=== PATIENT | female | born 1945 | race Caucasian/White ===

== ENCOUNTER 2016-10-04 17:00 | Emergency (ER) | payer MEDICARE ==
[2016-10-04 17:27] VITALS: BP 155/66
--- NOTE | 2016-10-04 18:33 | UC ---
Skin Complaint HPI - HPI Summary HPI Summary: pt with c/o red burning/itchy/irritated rash under bl breast that started 5 days ago. rt side has mostly resolved but left side has worsened slightly. - History of Current Complaint Chief Complaint: UCRash Time Seen by Provider: 10/04/16 18:11 Stated Complaint: STOMACH RASH Hx Obtained From: Patient Onset/Duration: Gradual Onset, Lasting Days - 5, Still Present, Worse Since - LAST 2 DAYS Timing: Constant Onset Severity: Mild Current Severity: Mild Pain Intensity: 2 Character: Pruritus, Redness, Painful Aggravating: Nothing Alleviating: Nothing Associated Signs & Symptoms: Positive: Rash. Negative: Nausea, Vomiting, Difficulty Breathing, Fever, Chills, Cough, Wheezing, Chest Pain, Hoarseness, Throat Tightening, Abdominal Pain, Lightheadedness, Drainage - Allergy/Home Medications Allergies/Adverse Reactions: Allergies Allergy/AdvReac Type Severity Reaction Status Date / Time Ciprofloxacin [From Cipro] Allergy Mild stomach Verified 10/04/16 17:27 ache Erythromycin Allergy Mild stomachache Verified 10/04/16 17:27 Prednisone Allergy Dizzy, Verified 10/04/16 17:27 heart racing Sulfa Antibiotics AdvReac Vomiting Verified 10/04/16 17:27 Sulfamethoxazole AdvReac Vomiting Verified 10/04/16 17:27 w/Trimethoprim [From Bactrim] Home Medications: Home Medications Famciclovir TAB(NF) [Famvir TAB(NF)] 250 mg PO ONCE 10/04/16 [History Confirmed 10/04/16] Review of Systems Constitutional: Negative Skin: Rash Eyes: Negative ENT: Negative Respiratory: Negative Cardiovascular: Negative Gastrointestinal: Negative Genitourinary: Negative Motor: Negative Neurovascular: Negative Musculoskeletal: Negative Neurological: Negative Psychological: Negative All Other Systems Reviewed And Are Negative: Yes PMH/Surg Hx/FS Hx/Imm Hx Endocrine History Of: Denies: Diabetes Cardiovascular History Of: Reports: Cardiac Disorders - palpitations, PVCS, FLUID Denies: Hypertension Respiratory History Of: Denies: Asthma - Surgical History Surgical History: Yes Surgery Procedure, Year, and Place: CATARACT B/L. D&C. RIGHT THUMB TRIGGER RELEASE--06/2015 - Family History Known Family History: Positive: Cardiac Disease, Hypertension, Diabetes - Social History Alcohol Use: None Substance Use Type: None, Prescribed Smoking Status (MU): Former Smoker - Immunization History Most Recent Influenza Vaccination: [id number] Physical Exam Triage Information Reviewed: Yes Appearance: Well-Appearing, No Pain Distress, Well-Nourished Vital Signs: Initial Vital Signs Temp 98.5 F 10/04/16 17:20 Pulse 68 10/04/16 17:20 Resp 16 10/04/16 17:20 BP 155/66 10/04/16 17:20 Pulse Ox 100 10/04/16 17:20 Vital Signs Reviewed: Yes Eyes: Positive: Conjunctiva Clear. Negative: Discharge ENT Exam: Normal ENT: Positive: Hearing grossly normal. Negative: Muffled/hoarse voice Neck exam: Normal Neck: Positive: Supple Respiratory: Positive: Lungs clear, Normal breath sounds, No respiratory distress, No accessory muscle use Cardiovascular: Positive: RRR, No Murmur Musculoskeletal Exam: Normal Neurological Exam: Normal Neurological: Positive: Alert, Muscle Tone Normal Psychological: Positive: Age Appropriate Behavior Skin: Positive: rashes Course/Dx - Differential Diagnoses - Skin Complaint Differential Diagnoses: Cellulitis, Contact Dermatitis, Tinea, Urticaria - Diagnoses Provider Diagnoses: fungal skin infection Discharge - Discharge Plan Condition: Stable Disposition: HOME Prescriptions: Nystatin/Triamcinolone CR(NF) [Mycolog CREAM(NF)] 1 applic TOPICAL BID #7 tube Patient Education Materials: Skin Yeast Infection (ED), Antifungals (On the skin) Referrals: Devin Rich MD [Primary Care Provider] - 1 Week (FOLLOW UP IN 2 DAYS IF WORSENING OR IF NEW SYMPTOMS(SUCH FEVER, CHILLS, CONFUSIONS OR UNSTABLE ON FEET) DEVELOP. OTHERWISE FOLLOW UP IN 1 WEEK.)
== END 2016-10-04 18:53 | disposition home or self-care (01) ==
LOC: UCCORT 17:00
DX: B36.9 Superficial mycosis, unspecified (principal); Z88.1 Allergy status to other antibiotic agents; Z88.2 Allergy status to sulfonamides; Z88.8 Allergy status to other drugs, medicaments and biological substances; Z98.42 Cataract extraction status, left eye; Z98.41 Cataract extraction status, right eye; Z87.891 Personal history of nicotine dependence
CPT/HCPCS: 99212; G0463

== ENCOUNTER 2017-07-01 14:31 | Emergency (ER) | payer MEDICARE ==
--- NOTE | 2017-07-01 15:38 | UC ---
Skin Complaint HPI - HPI Summary HPI Summary: 71 year old female presents with complains rash on her left wrist. - History of Current Complaint Time Seen by Provider: 07/01/17 15:37 Stated Complaint: LEFT ARM SKIN COMPLAINT Hx Obtained From: Patient Onset/Duration: Lasting Days Skin Exposure Onset/Duration: Days Ago Onset Severity: Moderate Current Severity: Moderate Location: Hand (Left) Aggravating Factor(s): Nothing Alleviating Factor(s): Nothing Associated Signs & Symptoms: Positive: Negative - Allergy/Home Medications Allergies/Adverse Reactions: Allergies Allergy/AdvReac Type Severity Reaction Status Date / Time Ciprofloxacin [From Cipro] Allergy Mild stomach Verified 07/01/17 15:42 ache Erythromycin Allergy Mild stomachache Verified 07/01/17 15:42 Prednisone Allergy Dizzy, Verified 07/01/17 15:42 heart racing Sulfa Antibiotics AdvReac Vomiting Verified 07/01/17 15:42 Sulfamethoxazole AdvReac Vomiting Verified 07/01/17 15:42 w/Trimethoprim [From Bactrim] Review of Systems Constitutional: Negative Skin: Rash Eyes: Negative ENT: Negative Respiratory: Negative Cardiovascular: Negative Gastrointestinal: Negative Genitourinary: Negative Motor: Negative Neurovascular: Negative Musculoskeletal: Negative Neurological: Negative Psychological: Negative All Other Systems Reviewed And Are Negative: Yes PMH/Surg Hx/FS Hx/Imm Hx Previously Healthy: Yes - Surgical History Surgical History: Yes Surgery Procedure, Year, and Place: CATARACT B/L. D&C. RIGHT THUMB TRIGGER RELEASE--06/2015 - Family History Known Family History: Positive: Cardiac Disease, Hypertension, Diabetes - Social History Alcohol Use: None Substance Use Type: None, Prescribed Smoking Status (MU): Former Smoker - Immunization History Most Recent Influenza Vaccination: [id number] Physical Exam Triage Information Reviewed: Yes Vital Signs Reviewed: Yes Eye Exam: Normal ENT Exam: Normal Dental Exam: Normal Neck exam: Normal Neck: Positive: 1 Respiratory Exam: Normal Cardiovascular Exam: Normal Abdominal Exam: Normal Musculoskeletal Exam: Normal Neurological Exam: Normal Psychological Exam: Normal Skin: Positive: rashes - left wrist Course/Dx - Diagnoses Provider Diagnoses: left wrist blister/rash Discharge - Discharge Plan Condition: Stable Disposition: HOME Prescriptions: Cephalexin CAP* [Keflex CAP*] 500 mg PO TID #30 cap Neomycin/Polym/Bacit TOP OINT* [Neosporin TOP OINT TUBE*] 1 applic TOPICAL BID # 1 tube Patient Education Materials: Blister (ED) Referrals: Devin Rich MD [Medical Doctor] -
[2017-07-01 15:42] VITALS: BP 144/81
== END 2017-07-01 15:57 | disposition home or self-care (01) ==
LOC: UCCORT 14:31
DX: S60.822A Blister (nonthermal) of left wrist, initial encounter (principal); R21 Rash and other nonspecific skin eruption; X58.XXXA Exposure to other specified factors, initial encounter; Y92.9 Unspecified place or not applicable; Z88.3 Allergy status to other anti-infective agents; Z88.2 Allergy status to sulfonamides; Z87.891 Personal history of nicotine dependence
CPT/HCPCS: 99212; G0463

== ENCOUNTER 2017-07-04 18:01 | Emergency (ER) | payer MEDICARE ==
--- OUTSIDE RECORDS SUMMARY | 2017-07-04 18:19 | XMS REPORT ---
:1945 External Reference #:[id number] Author Organization [employer] Address [address] [place] [address] Phone [phone] Care Team Providers Name Role Phone Devin Rich MD Care Team Information Offline Editor Unavailable Devin Rich MD Primary Care Physician Unavailable Payers Type Date Identification Numbers Payment Provider Subscriber Medicare Primary Policy Number: [id number] Medicare Natacha Galindo PayID: [id number] [address] [place] [address] [facility] Policy Number: [facility] Natacha Galindo [id number] PayID: [id number] [address] [place] [address] Problems Date Description Provider Status Onset: 05/05/2012 Hypertrophy of nasal turbinates Amber Castellon PA Active Onset: 05/05/2012 Stomatitis Amber Castellon PA Active Family History Date Family Member(s) Problem(s) Comments General Cancer, Head And Neck General Diabetes Social History Type Date Description Comments Marital Status Occupation [employer] Cigarette Use Never Smoked Cigarettes ETOH Use Never used alcohol Recreational Drug Use Never Used Drugs Smoking Patient has never smoked Allergies, Adverse Reactions, Alerts Date Description Reaction Status Severity Comments 05/05/2012 Erythromycin vomitting active 05/05/2012 Prednisone active 04/06/2015 Zithromax GI upset active Medications Medication Date Status Form Strength Qnty SIG Indications Ordering Provider Xanax 12/15/ Active Tablets 0.25mg 5tabs use one , 2013 tab every Rogelio, at M.D. bedtime Aleve 00/ Active Tablets 220mg 1 by Unknown 0000 mouth daily as needed Benadryl 00/ Active Capsules Unknown Allergy 0000 Afrin 12 Hour 0000/ Active Solution 0.05% Unknown 0000 Fluticasone 00/ Active Suspension 50mcg/Act 2 sprays Unknown Propionate 0000 both nostrils every day Dexamethasone 05/03/ Hx Tablets 2mg 5tabs 1 by Jere 2015 - mouth Rogelio, 08/04/ every day M.D. 2016 Nystatin 04/15/ Hx Suspension 334239Dreh 200ml 1 Jere, 2015 - /ML teaspoon Rogelio, 05/02/ by mouth M.D. 2015 four times a day x 7 days hold it in the mouth, swish and swallow Omeprazole 04/04/ Hx Capsules DR 40mg 30cap 1 by Jere, 2015 - s mouth Rogelio, 04/14/ every day M.D. 2015 Xanax 12/15/ Hx Tablets 1mg 1 tab Jere, 2013 - every Rogelio, 12/15/ night at M.D. 2013 bedtime Nasonex 05/12/ Hx Suspension 50mcg/Act 17GMb 2 sprays Jere, 2011 - ottl each Rogelio, 12/23/ nostril M.D. 2012 daily Azithromycin 05/06/ Hx Tablets 250mg 6tabs 2 po qd Jere, 2011 - 1, 1 po [facility], 05/12/ qd 2-5 M.D. 2011 Fluconazole 05/06/ Hx Tablets 150mg 2tabs 1 po qd. Jere, 2011 - repeat in [facility], 05/12/ 3 days if M.D. 2011 symptoms persist. Xanax / Hx Tablets 0.25mg 30tab use one Unknown 0000 - s tab q 12 12/15/ prn for 2013 anxiety Nexium / Hx Capsules DR 40mg 60cap 1 po qd Unknown 0000 - s prn 2013 Famvir / Hx Tablets 125mg @ hs Unknown 0000 - 2012 Fluticasone / Hx Suspension 50mcg/Act 1unit 2 sprays Unknown Propionate 0000 - s each 12/15/ nostril 2014 qd Valium /00/ Hx Tablets 2mg 15tab one tab Unknown 0000 - s ar night 06/14/ daily for 2013 15 days Nexium 00/00/ Hx Capsules 1 by Unknown 0000 - mouth 04/04/ twice 2016 daily Vital Signs Date Vital Result Comment 06/11/2017 Weight 146.50 lb Height 63.5 inches 5'3.50" BMI (Body Mass Index) 25.5 kg/m2 BP Systolic 146 mmHg BP Diastolic 80 mmHg Heart Rate 76 /min O2 % BldC Oximetry 97 % Body Temperature 97.6 F Pain Level 0 08/05/2016 Weight 148.00 lb Height 63.5 inches 5'3.50" BMI (Body Mass Index) 25.8 kg/m2 BP Systolic 128 mmHg BP Diastolic 82 mmHg Heart Rate 78 /min O2 % BldC Oximetry 98 % Body Temperature 97.6 F 05/03/2016 Weight 144.00 lb Height 63.5 inches 5'3.50" BMI (Body Mass Index) 25.1 kg/m2 BP Systolic 118 mmHg BP Diastolic 68 mmHg Heart Rate 73 /min O2 % BldC Oximetry 98 % Body Temperature 98.0 F Pain Level 0 04/15/2016 Weight 144.50 lb Height 63.5 inches 5'3.50" BMI (Body Mass Index) 25.2 kg/m2 BP Systolic 126 mmHg BP Diastolic 68 mmHg Heart Rate 77 /min O2 % BldC Oximetry 98 % Body Temperature 100.0 F 04/04/2016 Weight 148.00 lb Height 63.5 inches 5'3.50" BMI (Body Mass Index) 25.8 kg/m2 Heart Rate 86 /min O2 % BldC Oximetry 100 % Body Temperature 98.2 F 03/28/2016 Weight 149.00 lb Height 63.5 inches 5'3.50" BMI (Body Mass Index) 26.0 kg/m2 BP Systolic 134 mmHg BP Diastolic 66 mmHg Heart Rate 69 /min O2 % BldC Oximetry 99 % Body Temperature 96.8 F 03/13/2016 Weight 149.50 lb Height 63.5 inches 5'3.50" BMI (Body Mass Index) 26.1 kg/m2 Heart Rate 78 /min O2 % BldC Oximetry 98 % Body Temperature 98.8 F 04/18/2015 Weight 149.50 lb Height 63.5 inches 5'3.50" BMI (Body Mass Index) 26.1 kg/m2 BP Systolic 134 mmHg BP Diastolic 80 mmHg Heart Rate 82 /min O2 % BldC Oximetry 97 % Body Temperature 99.4 F Pain Level 5 04/06/2015 Weight 150.00 lb Height 63.5 inches 5'3.50" BMI (Body Mass Index) 26.2 kg/m2 BP Systolic 126 mmHg BP Diastolic 76 mmHg Heart Rate 71 /min O2 % BldC Oximetry 98 % Body Temperature 97.5 F 11/18/2014 Weight 147.12 lb Height 63.5 inches 5'3.50" BMI (Body Mass Index) 25.7 kg/m2 BP Systolic 136 mmHg BP Diastolic 80 mmHg Heart Rate 73 /min O2 % BldC Oximetry 97 % Body Temperature 98.0 F Pain Level 0 06/15/2014 Weight 147.00 lb Height 63.5 inches 5'3.50" BMI (Body Mass Index) 25.6 kg/m2 BP Systolic 122 mmHg BP Diastolic 80 mmHg Heart Rate 68 /min O2 % BldC Oximetry 98 % Body Temperature 98.2 F Pain Level 8 12/15/2013 Weight 146.38 lb Height 63.5 inches 5'3.50" BMI (Body Mass Index) 25.5 kg/m2 BP Systolic 130 mmHg BP Diastolic 80 mmHg Heart Rate 72 /min O2 % BldC Oximetry 97 % Body Temperature 98.9 F 12/23/2012 Weight 149.00 lb Height 63.5 inches 5'3.50" BMI (Body Mass Index) 26.0 kg/m2 BP Systolic 118 mmHg BP Diastolic 76 mmHg Heart Rate 71 /min O2 % BldC Oximetry 99 % Body Temperature 97.7 F 05/12/2012 BP Systolic 140 mmHg BP Diastolic 80 mmHg Heart Rate 70 /min O2 % BldC Oximetry 98 % Body Temperature 98.8 F 05/05/2012 Weight 145.00 lb Height 63.5 inches 5'3.50" BMI (Body Mass Index) 25.3 kg/m2 BP Systolic 126 mmHg BP Diastolic 82 mmHg Heart Rate 74 /min O2 % BldC Oximetry 98 % Body Temperature 98.6 F Results Test Date Test Result H/L Range Note Laboratory test finding 08/09/2016 Free T3 2.08 pg/mL Low 2.18-3.98 1 TSH+Free T4 08/05/2016 Thyroid Stim Hormone 1.79 uIU/mL 0.30-4.20 1 Free T4 0.87 ng/dL 0.76-1.46 1 1 R22.1 Procedures Date CPT Code Description Status 08/05/2016 54349 Ultrasound Head/Neck Completed 04/15/2016 33468 Fiberoptic Laryngoscopy,Diag. Completed 04/04/2016 17188 Nasal Endoscopy, Diag. Completed 03/28/2016 13409 Fiberoptic Laryngoscopy,Diag. Completed 03/13/2016 74327 Tympanometry Completed 03/13/2016 13007 Tympanometry Completed 04/06/2015 88556 Fiberoptic Laryngoscopy,Diag. Completed 11/18/2014 39852 Tympanometry Completed 12/15/2013 52841 Audiometry, Comprehensive Completed 12/15/2013 14944 Audiometry, Comprehensive Completed 05/05/2012 30654 Nasal Endoscopy, Diag. Completed Encounters Type Date Location Provider CPT E/M Dx Office Visit 08/05/2016 9:15a Main Office Rogelio Oquendo M.D. 91672 E04.1 K21.9 Office Visit 05/03/2016 11:00a Main Office Rogelio Oquendo M.D. 10778 T28.0xxA K21.9 Office Visit 04/15/2016 1:30p Main Office Rogelio Oquendo M.D. 84564 T28.0xxA K21.9 B37.9 Office Visit 04/04/2016 10:00a Main Office Rogelio Oquendo M.D. 95137 T28.0xxA J34.2 J31.0 Office Visit 03/28/2016 9:00a Main Office Rogelio Oquendo M.D. 14289 R07.0 K21.9 M26.60 H92.02 Office Visit 03/13/2016 8:45a Main Office Rogelio Oquendo M.D. 08151 K21.9 H69.82 M26.60 Office Visit 04/18/2015 3:15p Main Office Rogelio Oquendo M.D. 00895 K21.9 R13.10 H92.01 Office Visit 04/06/2015 3:15p Main Office Rogelio Oquendo M.D. 06653 H69.83 K21.9 R07.0 Office Visit 11/18/2014 8:15a Main Office Rogelio Oquendo M.D. 59139 381.81 780.4 385.00 Office Visit 06/15/2014 11:00a Main Office Rogelio Oquendo M.D. 75300 524.60 723.1 470 Office Visit 12/15/2013 1:30p Main Office Rogelio Oquendo M.D. 47063 389.9 780.4 470 386.10 Office Visit 12/23/2012 8:45a [place] [address] 381.81 388.70 465.8 Office Visit 05/12/2012 4:15p Main Office Rogelio Oquendo M.D. 53649 478.0 528.00 Office Visit 05/05/2012 8:30a [place] [address] 478.0 528.00 Office Visit 12/15/2006 8:30a Main Office Rogelio Oquendo M.D. 54270 780.4 Plan of Care No Information Available
[2017-07-04 18:23] VITALS: BP 154/72
--- NOTE | 2017-07-04 18:25 | UC ---
Skin Complaint HPI - HPI Summary HPI Summary: 71 year old female presents with complains of left wrist rash. She was initially treated with antibiotics but her rash is unchanged. - History of Current Complaint Chief Complaint: UCSkin Time Seen by Provider: 07/04/17 18:02 Stated Complaint: LFT WRIST SKIN COMPLAINT Hx Obtained From: Patient Onset/Duration: Sudden Onset Skin Exposure Onset/Duration: Days Ago Onset Severity: Moderate Current Severity: Moderate Location: Hand (Left) - Allergy/Home Medications Allergies/Adverse Reactions: Allergies Allergy/AdvReac Type Severity Reaction Status Date / Time Ciprofloxacin [From Cipro] Allergy Mild stomach Verified 07/01/17 15:42 ache Erythromycin Allergy Mild stomachache Verified 07/01/17 15:42 Prednisone Allergy Dizzy, Verified 07/01/17 15:42 heart racing Cephalexin AdvReac GI Upset Verified 07/04/17 18:24 Sulfa Antibiotics AdvReac Vomiting Verified 07/01/17 15:42 Sulfamethoxazole AdvReac Vomiting Verified 07/01/17 15:42 w/Trimethoprim [From Bactrim] Home Medications: Home Medications Anti-Fungal Cream 1 applic TOPICAL ONCE 07/04/17 [History Confirmed 07/04/17] Review of Systems Constitutional: Negative Skin: Rash - left wrist Eyes: Negative ENT: Negative Respiratory: Negative Cardiovascular: Negative Gastrointestinal: Negative Genitourinary: Negative Motor: Negative Neurovascular: Negative Musculoskeletal: Negative Neurological: Negative Psychological: Negative All Other Systems Reviewed And Are Negative: Yes PMH/Surg Hx/FS Hx/Imm Hx Previously Healthy: Yes - Surgical History Surgical History: Yes Surgery Procedure, Year, and Place: CATARACT B/L. D&C. RIGHT THUMB TRIGGER RELEASE--06/2015 - Family History Known Family History: Positive: Cardiac Disease, Hypertension, Diabetes - Social History Alcohol Use: None Substance Use Type: None, Prescribed Smoking Status (MU): Former Smoker - Immunization History Most Recent Influenza Vaccination: 2744-9850 Physical Exam Triage Information Reviewed: Yes Vital Signs: Initial Vital Signs Temp 37.3 C 07/04/17 18:18 Pulse 82 07/04/17 18:18 Resp 16 07/04/17 18:18 BP 154/72 07/04/17 18:18 Pulse Ox 97 07/04/17 18:18 Vital Signs Reviewed: Yes Eye Exam: Normal ENT Exam: Normal Dental Exam: Normal Neck exam: Normal Neck: Positive: 1 Respiratory Exam: Normal Cardiovascular Exam: Normal Abdominal Exam: Normal Musculoskeletal Exam: Normal Neurological Exam: Normal Psychological Exam: Normal Skin: Positive: rashes - left wrist Course/Dx - Diagnoses Provider Diagnoses: left wrist rash. left wrist ringworm Discharge - Discharge Plan Condition: Stable Disposition: HOME Prescriptions: Fluconazole [Diflucan 150 MG (NF)] 150 mg PO ONCE #1 tab Terbinafine HCl (Topical) [Lamisil At] 1 % EX BID #2 tube Patient Education Materials: Tinea Capitis (ED) Referrals: Devin Rich MD [Primary Care Provider] - Malika Salcedo [Medical Doctor] -
== END 2017-07-04 18:43 | disposition home or self-care (01) ==
LOC: UCCORT 18:01
DX: R21 Rash and other nonspecific skin eruption (principal); B35.9 Dermatophytosis, unspecified; Z88.3 Allergy status to other anti-infective agents; Z87.891 Personal history of nicotine dependence
CPT/HCPCS: 99212; G0463